=== PATIENT | female | born 1985 | race Two or more races ===

== ENCOUNTER 2017-03-02 19:49 | Emergency (ER) | payer OTHER ==
[2017-03-02 19:56] VITALS: BP 118/73; PULSE 85; TEMP 97.9; BMI 19.5
--- NOTE | 2017-03-02 20:25 | PDOC ---
History of Present Illness - General Chief Complaint: Pain Stated Complaint: KNEE PAIN Time Seen by Provider: 03/02/17 20:11 History Source: Patient - History of Present Illness Occurred: reports: last week Severity: Yes: moderate Lower Extremity Pain Location: left: knee Past History - Past Medical History Allergies/Adverse Reactions: Allergies Allergy/AdvReac Type Severity Reaction Status Date / Time No Known Allergies Allergy Verified 03/02/17 19:56 Other medical history: denies - Psycho/Social/Smoking Cessation Hx Suicidal Ideation: No Smoking History: Never smoked Review of Systems - Review of Systems Constitutional: No: Chills, Fever Musculoskeletal: Yes: Joint Pain, Joint Swelling *Physical Exam - Vital Signs Last Vital Signs Temp Pulse Resp BP Pulse Ox 97.9 F 85 18 118/73 100 03/02/17 19:53 03/02/17 19:53 03/02/17 19:53 03/02/17 19:53 03/02/17 19:53 - Physical Exam General Appearance: Yes: Appropriately Dressed. No: Apparent Distress HEENT: positive: Normal Voice Neck: positive: Supple Respiratory/Chest: negative: Respiratory Distress Extremity: positive: Tender, Swelling, Other (FROMI, able to bear weight). negative: Erythema Integumentary: positive: Dry, Warm Neurologic: positive: Fully Oriented, Alert, Normal Mood/Affect Medical Decision Making - Medical Decision Making 03/02/17 20:22 31-year-old female, currently 8 weeks , endorses history of chronic left knee pain and states 5 years ago while she was residing in the , that she had fluid drained from left knee, now p/w worsening pain to left knee 1 week with some swelling. No recent trauma. No fever or chills. No h/o septic joint. No issues with so far. Patient well-appearing and stable with mild swelling to left knee compared to the right with diffuse tenderness to palpation. Given current , will not x-ray at this time. DC with Tylenol and Mendoza wrap. Ortho follow-up given 03/02/17 20:24 *DC/Admit/Observation/Transfer Diagnosis at time of Disposition: Knee pain, left Qualifiers: Chronicity: acute Qualified Code(s): M25.562 - Pain in left knee - Discharge Dispostion Disposition: HOME Condition at time of disposition: Good - Referrals Referrals: Ba Mix MD [Staff Physician] - - Patient Instructions Printed Discharge Instructions: DI for Knee Pain Additional Instructions: Take tylenol as needed and keep MENDOZA on for comfort Follow up with Dr mix of orthopedics next week
== END 2017-03-02 20:40 | disposition home or self-care (01) ==
LOC: JERFT 19:49
DX: O99.89 Other specified diseases and conditions complicating pregnancy, childbirth and the puerperium (principal); M25.562 Pain in left knee; Z3A.08 8 weeks gestation of pregnancy
CPT/HCPCS: 99281-25

== ENCOUNTER 2017-05-13 00:46 | Emergency (ER) | payer SELFPAY ==
[2017-05-13 01:26] VITALS: BP 106/62; PULSE 77; TEMP 98.2; BMI 20.5
[2017-05-13] MEDS ORDERED: FAMOTIDINE 20 MG/50 ML IVPB 50 ML IVPB ONE ×2 (01:59→02:11)
[2017-05-13] MEDS ORDERED: SODIUM CHLORIDE 1,000 ML IV STA (01:59)
[2017-05-13] MEDS ORDERED: MAG HYDROX/AL HYDROX/SIMETH 30 ML UNIT-DOSE CUP PO ONE (01:59)
[2017-05-13] MEDS ORDERED: ONDANSETRON 4 MG/2 ML VIAL IVPUSH ONE (02:00)
--- NOTE | 2017-05-13 02:20 | PDOC ---
History of Present Illness - General Chief Complaint: Pain Stated Complaint: ABDOMINAL PAIN (19 WEEKS PREG) Time Seen by Provider: 05/13/17 01:42 History Source: Patient Exam Limitations: No Limitations - History of Present Illness Initial Comments: 05/13/17 03:42 31 woman, 19 weeks , here today with epigastric burning abdominal pain and contractions. The abdominal pain and contractions started several hours before presentation to the ED. Contractions lasted for 2 hours, 15 minutes apart. Denies vaginal bleeding. The pain does not radiate. There is associated nausea. Patient denies fevers, chills, and vomiting. Patient has an OB ultrasound scheduled for Monday. Patient is having no contractions at this time. Past History - Past Medical History Allergies/Adverse Reactions: Allergies Allergy/AdvReac Type Severity Reaction Status Date / Time No Known Allergies Allergy Verified 05/13/17 01:24 Home Medications: Ambulatory Orders NK [No Known Home Medication] 05/13/17 - Suicide/Smoking/Psychosocial Hx Smoking History: Never smoked Have you smoked in the past 12 months: No Information on smoking cessation initiated: No Hx Alcohol Use: No Drug/Substance Use Hx: No Review of Systems - Review of Systems Comments:: 05/13/17 03:44 GENERAL/CONSTITUTIONAL: No fever or chills. No weakness. HEAD, EYES, EARS, NOSE AND THROAT: Positive for blurred vision, unchanged. No sore throat. CARDIOVASCULAR: No chest pain or shortness of breath RESPIRATORY: No cough, wheezing, or hemoptysis. GASTROINTESTINAL: No nausea, vomiting, diarrhea or constipation. GENITOURINARY: No dysuria, frequency, or change in urination. MUSCULOSKELETAL: No joint or muscle swelling or pain. No neck or back pain. SKIN: No rash NEUROLOGIC: No headache, vertigo, loss of consciousness, or change in strength/ sensation. ENDOCRINE: No increased thirst. No abnormal weight change HEMATOLOGIC/LYMPHATIC: No anemia, easy bleeding, or history of blood clots. ALLERGIC/IMMUNOLOGIC: No hives or skin allergy. *Physical Exam - Vital Signs Last Vital Signs Temp Pulse Resp BP Pulse Ox 98.2 F 77 20 106/62 97 05/13/17 01:24 05/13/17 01:24 05/13/17 01:24 05/13/17 01:24 05/13/17 01:24 - Physical Exam Comments: 05/13/17 04:05 GENERAL: Awake, alert, and fully oriented, in no acute distress HEAD: No signs of trauma, normocephalic, atraumatic EYES: PERRLA, EOMI, sclera anicteric, conjunctiva clear ENT: Auricles normal inspection, hearing grossly normal, nares patent, oropharynx clear without exudates. Moist mucosa NECK: Normal ROM, supple, no lymphadenopathy, JVD, or masses LUNGS: No distress, speaks full sentences, clear to auscultation bilaterally HEART: Regular rate and rhythm, normal S1 and S2, no murmurs, rubs or gallops, peripheral pulses normal and equal bilaterally. ABDOMEN: Soft, mild epigastric tenderness, normoactive bowel sounds. No guarding, no rebound. No masses EXTREMITIES: Normal inspection, Normal range of motion, no edema. No clubbing or cyanosis. NEUROLOGICAL: Cranial nerves II through XII grossly intact. Normal speech, no focal sensorimotor deficits SKIN: Warm, Dry, normal turgor, no rashes or lesions noted. ED Treatment Course - LABORATORY CBC & Chemistry Diagram: 05/13/17 02:17 05/13/17 02:17 Medical Decision Making - Medical Decision Making 05/13/17 03:36 31 woman, 19 weeks , here today with epigastric burning abdominal pain. Vital signs stable and normal. Physical exam benign. Did experience two hours of contractions before arriving into the ED. Differential diagnosis includes, but is not limited to: gastritis, labor. Will treat with maalox, pepcid, fluids, and zofran. Will evaluate with labs US shows single live IUP HR 140, 18wk 3days in gestation. Pain improved with GI cocktail. Patient is alert, improved and ambulatory at discharge. Return precautions given. *DC/Admit/Observation/Transfer Diagnosis at time of Disposition: Gastritis - Discharge Dispostion Condition at time of disposition: Good Admit: No - Patient Instructions Printed Discharge Instructions: DI for Gastritis
[2017-05-13 02:34] LABS: BASOPHIL 0.7 % (0-2.0); EOSINOPHIL 1.4 % (0-4.5); MCH 27.3 pg (25.7-33.7); MCHC 32.9 g/dl (32.0-36.0); MEAN CELL VOLUME 83.1 fl (80-96); MEAN PLT VOLUME 9.3 fl (7.5-11.1); NEUTROPHILS 73.6 % (42.8-82.8); PLATELET COUNT 183 K/MM3 (134-434); RDW 13.7 % (11.6-15.6); WHITE BLOOD COUNT 11.1 K/mm3 (4.0-10.0)
[2017-05-13 02:55] LABS: ALBUMIN 2.9 g/dl (3.4-5.0); ANION GAP 8 (8-16); BILIRUBIN,TOTAL 0.3 mg/dL (0.2-1.0); CALCIUM 8.5 mg/dL (8.5-10.1); CO2 24 mmol/L (21-32); CREATININE 0.3 mg/dL (0.55-1.02); GLUCOSE,RANDOM 84 mg/dL (74-106); SGOT/AST 14 U/L (15-37); SGPT/ALT 16 U/L (12-78); TOT PROT 6.1 g/dl (6.4-8.2)
[2017-05-13 02:56] LABS: ALK PHOS 45 U/L (45-117)
--- NOTE | 2017-05-13 03:54 | PDOC ---
Attending Attestation - Resident Resident Name: Abhinav Olvera - ED Attending Attestation I have performed the following: I have examined & evaluated the patient, The case was reviewed & discussed with the resident, I agree w/resident's findings & plan, Exceptions are as noted - HPI HPI: 05/13/17 03:51 31 yo F at 19 weeks here with c/o feeling contractions and abd pain in epigastric. burning sensation. no n/v. was at work. 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 no vaginal bleeding. no loss of fluid. - Physicial Exam PE: 05/13/17 03:52 awake alert lungs clear heart rrr nomrg. abd soft gravid. non tender. skin warm and dry. ext wwp. - Medical Decision Making 05/13/17 03:53 with c/o epigastric burning pain, and contraction like feeling. likely jhony fleming. will hydrate pt. check labs. treat for gerd. us for well being. 05/13/17 03:54 pain improved with pepcidd. us live iup. dc home labs unremarkable.
[2017-05-13 04:13] LABS: URINE APPEARANCE SLCLOUDY; URINE BILIRUBIN NEGATIVE (NEGATIVE); URINE BLOOD NEGATIVE (NEGATIVE); URINE COLOR LTYELLOW; URINE GLUCOSE (UA) NEGATIVE (NEGATIVE); URINE KETONE NEGATIVE (NEGATIVE); URINE NITRITE NEGATIVE (NEGATIVE); URINE PROTEIN NEGATIVE (NEGATIVE); URINE UROBILINOGEN NEGATIVE mg/dL (0.2-1.0)
[2017-05-13 11:30] LABS: URINE LEUK ESTERASE 1+ (NEGATIVE)
== END 2017-05-13 04:18 | disposition home or self-care (01) ==
LOC: JER 00:46
PROC: 3E033GC Introduction of Other Therapeutic Substance into Peripheral Vein, Percutaneous Approach (ICD-10-PCS; principal; 2017-05-13)
PROC: 3E0337Z Introduction of Electrolytic and Water Balance Substance into Peripheral Vein, Percutaneous Approach (ICD-10-PCS; 2017-05-13)
DX: O26.92 Pregnancy related conditions, unspecified, second trimester (principal); Z3A.19 19 weeks gestation of pregnancy; K29.70 Gastritis, unspecified, without bleeding
CPT/HCPCS: 36415; 76801-TC; 80053; 81003; 81015; 83690; 85025; 99281-25

== ENCOUNTER 2019-07-27 01:59 | Day surgery (SDC) | payer SELFPAY ==
--- NOTE | 2019-07-27 03:09 | PDOC ---
Attending Attestation - Resident Resident Name: margarita - ED Attending Attestation I have performed the following: I have examined & evaluated the patient, The case was reviewed & discussed with the resident, I agree w/resident's findings & plan - HPI HPI: 07/27/19 03:50 89F A1 LMP 11/ 8 weeks gestation c/o vaginal bleeding and passing parts at 1:30 am tonight. Complains of continued bleeding. endorses mild shortness of breath. Denies lightheadedness dizziness numbness tingling weakness chest pain palpitations nausea vomiting or any abdominal pain. Hx toxoplasmosis - Physicial Exam PE: 07/29/19 05:33 Pt comes with vag bleed in and miscarrriage; os is open in the ER 07/29/19 05:34 afebrile Abd soft NT ND No flank pain Pt has [id number] lungs clear - Medical Decision Making 07/29/19 05:33 33F A1 LMP 11 approx 8 wks gestation presenting with spontaneous . Os open. No active bleeding. - CBC, CMP, Cardiac, Coags, T&S - UA - TVUS labs reviewed Hgb 6.7 Contacted pt's ob: no privleges at this hospital; recs D&C contacted Dr. Cantrell, biztalk consultant [employer]PER[employer], - TVUS, blood Pt consented for blood 2U PRBC Call Dr. Cantrell after TVUS results; dispo pending TVUS . Pt signed out to the day ER team
--- NOTE | 2019-07-27 03:59 | PDOC ---
History of Present Illness - General Chief Complaint: Vaginal Bleeding Stated Complaint: VAGINAL BLEEDING/ABD PAIN Time Seen by Provider: 07/27/19 03:08 - History of Present Illness Initial Comments: 07/28/19 22:37 33F A1 LMP 11 8 weeks gestation c/o vaginal bleeding and passing parts at 1:30 am tonight. Complains of continued bleeding. endorses mild shortness of breath. Denies lightheadedness dizziness numbness tingling weakness chest pain palpitations nausea vomiting or any abdominal pain. 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 Wallace ([facility]) No PCP Past History - Past Medical History Allergies/Adverse Reactions: Allergies Allergy/AdvReac Type Severity Reaction Status Date / Time No Known Allergies Allergy Verified 07/27/19 03:38 Home Medications: Ambulatory Orders Ferrous Sulfate [Feosol] 325 mg PO DAILY #30 tablet 07/27/19 COPD: No - Immunization History Immunization Up to Date: Yes - Psycho Social/Smoking Cessation Hx Smoking History: Never smoked Have you smoked in the past 12 months: No Hx Alcohol Use: No Drug/Substance Use Hx: No Review of Systems - Review of Systems Comments:: 07/28/19 22:37 ROS: CONSTITUTIONAL: Denies F / C HEENT: Denies headache, lightheadedness, dizziness, changes in vision / hearing RESP: Endorses mild SOB. Denies cough CARD: Denies chest pain, palpitations GI: Denies N / V / D, abdominal pain : Denies dysuria SKIN: Denies rashes NEURO: Denies numbness, tingling, weakness MSK: Denies back pain *Physical Exam - Vital Signs Last Vital Signs Temp Pulse Resp BP Pulse Ox 98.4 F 98 H 16 109/67 100 07/27/19 03:38 07/27/19 03:38 07/27/19 03:38 07/27/19 03:38 07/27/19 03:38 - Physical Exam 07/28/19 22:37 PE: GEN: NAD AAOx3 HEENT: NC/AT. No facial asymmetry. Moist mucous membranes. Normal voice. Supple neck w/ FROM. CV: S1/S2, RRR, no m/r/g LUNG: CTAB, no wheezes, crackles, rales, rhonchi. GI: soft, ndnt, +BS, no guarding, no rebound. No masses. PELVIC: Exam chaperoned by medical student, Katia. No discharge or atrophy on inspection. There is dried blood. Speculum exam revealed POC in vault, removed w/ sponge stick. No active bleeding, there was blood in the vault. Cervical os visualized and open with no active bleeding. No CMT on bimanual. Cervix 2-3cm open on bimanual. EXTREMITIES: No obvious deformities of all extremities. SKIN: warm, dry, normal turgor PSYCH: normal mood and affect NEURO: Moving all extremities well. ED Treatment Course - LABORATORY CBC & Chemistry Diagram: 07/27/19 19:20 07/27/19 14:15 - RADIOLOGY Radiology Studies Ordered: Category Date Time Status TRANSVAGINAL US PREG [US] Stat Ultrasound 07/27/19 03:33 Ordered Medical Decision Making - Medical Decision Making 07/27/19 03:57 MDM: 33F A1 LMP 06/07 approx 8 wks gestation presenting with spontaneous . Os open. No active bleeding. - CBC, CMP, Cardiac, Coags, T&S - UA - TVUS 07/27/19 05:24 labs reviewed Hgb 6.7 Contacted pt's ob: no privledges at this hospital; recs D&C contacted Dr. Cantrell - TVUS, blood consented for blood 2U PRBC Call Dr. Cantrell after TVUS results; dispo pending TVUS but will be admitted signed out to AM team Discharge - Discharge Information Problems reviewed: Yes Clinical Impression/Diagnosis: Incomplete Anemia Qualifiers: Anemia type: unspecified type Qualified Code(s): D64.9 - Anemia, unspecified Condition: Stable Disposition: HOME - Additional Discharge Information - Follow up/Referral - Patient Discharge Instructions - Post Discharge Activity
[2019-07-27 04:16] LABS: EOS % 0.9 % (0-4.5)
[2019-07-27 04:23] LABS: BASO % 0.4 % (0-2.0); HEMATOCRIT 20.4 % (32.4-45.2); LYMPH % 15.5 % (8-40); MCH 27.4 pg (25.7-33.7); MCHC 32.6 g/dl (32.0-36.0); MEAN PLT VOLUME 9.1 fl (7.5-11.1); MONO % 4.4 % (3.8-10.2); NEUT % 78.8 % (42.8-82.8); PLATELET COUNT 210 K/MM3 (134-434); RBC 2.43 M/mm3 (3.60-5.2); RDW 13.1 % (11.6-15.6); WHITE BLOOD COUNT 14.7 K/mm3 (4.0-10.0)
[2019-07-27 04:31] LABS: INR 0.97 (0.83-1.09); PROTHROMBIN TIME (PATIENT) 11.5 SEC (9.7-13.0)
[2019-07-27 04:33] LABS: ACTIVATED PTT 27.5 SECONDS (25.2-36.5)
[2019-07-27 04:39] LABS: HEMOGLOBIN 6.7 GM/dL (10.7-15.3)
--- NOTE | 2019-07-27 07:27 | PDOC ---
*Physical Exam - Vital Signs Last Vital Signs Temp Pulse Resp BP Pulse Ox 98.6 F 90 16 99/58 L 99 07/27/19 07:24 07/27/19 07:24 07/27/19 07:24 07/27/19 07:24 07/27/19 07:24 ED Treatment Course - LABORATORY CBC & Chemistry Diagram: 07/27/19 19:20 07/27/19 14:15 - ADDITIONAL ORDERS Additional order review: Laboratory Results 07/27/19 07/27/19 07/27/19 04:52 04:00 04:00 PT with INR 11.50 INR 0.97 PTT (Actin FS) 27.5 Creatine Kinase 88 Troponin I < 0.02 Beta HCG, Quant Blood Type A POSITIVE Antibody Screen Negative Crossmatch See Detail 07/27/19 07/27/19 04:00 04:00 PT with INR INR PTT (Actin FS) Creatine Kinase Troponin I Beta HCG, Quant 6357.7 Blood Type A POSITIVE Antibody Screen Negative Crossmatch 07/27/19 04:00 RBC 2.43 L MCV 84.0 MCHC 32.6 RDW 13.1 MPV 9.1 Neutrophils % 78.8 Lymphocytes % 15.5 Monocytes % 4.4 Eosinophils % 0.9 Basophils % 0.4 Medical Decision Making - Medical Decision Making 07/27/19 07:26 Sign out from night team --- 33F w PMHx toxoplasmosis 8 weeks gestation c/o vaginal bleeding and passing parts at 1:30 am tonight d/t incomplete LETTERER: Dr. Wallace ([facility]), No PCP pelvic exam showed open cervical os 2-3cm, no active bleeding, POC in vaginal vault removed TVUS showed thickened and irregular endometrium without evidence of viable intrauterine gestation. No adnexal mass/free fluid WBC 14, pending UA Hgb 6.7 - consented for blood, given 2U PRBC Contacted pt's ob: no privileges at this hospital; recs D&C, call instrumentation technologist obgyn for recs Contacted obgyn Dr. Cantrell, he will see pt in ED and do pelvic exam, agrees with admitting pt Admitted to obgyn Dr Cantrell for anemia requiring transfusion, incomplete Discharge - Discharge Information Problems reviewed: Yes Clinical Impression/Diagnosis: Incomplete Anemia Qualifiers: Anemia type: unspecified type Qualified Code(s): D64.9 - Anemia, unspecified Condition: Stable - Additional Discharge Information - Follow up/Referral - Patient Discharge Instructions - Post Discharge Activity
[2019-07-27] MEDS ORDERED: SODIUM CHLORIDE 1,000 ML IV SCH (13:00)
--- NOTE | 2019-07-27 13:09 | HP ---
Admitting History and Physical - Primary Care Physician PCP: Elmo Cantrell - Admission Chief Complaint: SAB History of Present Illness: Patient unaware that she was . She reports long standing anemia and active bright red vaginal bleeding started yesterday. She reports passing tissue and photo reviewed. 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: No: Alzheimer's, CVA, Dementia, Migraine, Multiple Sclerosis, Peripheral Neuropathy, Parkinson's, Seizure, Syncope, TIA, Vertigo, Other Cardiovascular: No: AFIB, Aneurysm, Aortic Insufficiency, Aortic Stenosis, CAD, CHF, Deep Vein Thrombosis, HTN, Hyperlipdemia, ND, Mitral Insufficiency, Mitral Stenosis, Murmur, Pulmonary Hypertension, Other Pulmonary: No: Asthma, Bronchitis, Cancer, COPD, O2 Dependent, Pneumonia, Previously Intubated, Pulmonary Embolus, Pulmonary Fibrosis, Sleep Apnea, Other Gastrointestinal: No: Ascites, Cancer, Constipation, Crohn's Disease, Diverticulitis, Diverticulosis, Esophageal Varices, Gastritis, GERD, GI Bleed, Hemorrhoids, Hiatal Hernia, Inflamatory Bowel Disease, Irritable Bowel Disease, Pancreatitis, Peptic Ulcer Disease, Ulcerative Colitis, Other Hepatobiliary: No: Cirrhosis, Cholelithiasis, Cholecystitis, Choledocholithiasis , Hepatitis A, Hepatitis B, Hepatitis C, Other Renal/: No: Renal Failure, Renal Inusuff, BPH, Cancer, Hematuria, Hemodialysis , Neurogenic Bladder, Renal Calculi, UTI, Other Reproductive: No: Ectopic , Endometriosis, Fibroids, PID, Polycystic Ovary Syndrome, Postmenopausal, Other ...LMP: 06/07/19 ...: Yes ...: 4 ...Para: 2 Heme/Onc: Yes: Anemia Infectious Disease: No: AIDS, C-Diff, Herpes Zoster, HIV, MRSA, STD's, Tuberculosis, VREF, Other Psych: No: Addictions, Anxiety, Bipolar, Depression, Panic, Psychosis, Schizophrenia, Other Musculoskeletal: No: Bursitis, Chronic low back pain, Hemiparesis, Hemiplegia, Osteoarthritis, Paraplegia, Other Rheumatology: No: Fibromyalgia, Gout, Lupus, Rheumatoid Arthritis, Sarcoidosis, Vasculitis, Other ENT: No: Allergic Rhinitis, Sinusitis, Other Endocrine: No: Mega's Disease, Gold Bar's Disease, Diabetes Insipidus, Diabetes Mellitus, Hyperparathyroidism, Hyperthyroidism, Hypothyroidism, Osteopenia, SIADH, Other Dermatology: No: Basal Cell, Cellulitis, Eczema, Melanoma, Psoriasis, Squamous Cell, Other - Past Surgical History Past Surgical History: Yes: Breast Biopsy (breast augmentation) - Smoking History Smoking history: Never smoked Have you smoked in the past 12 months: No - Alcohol/Substance Use Hx Alcohol Use: No History of Substance Use: reports: None Home Medications - Allergies Allergies/Adverse Reactions: Allergies Allergy/AdvReac Type Severity Reaction Status Date / Time No Known Allergies Allergy Verified 07/27/19 03:38 - Home Medications Home Medications: Ambulatory Orders NK [No Known Home Medication] 05/13/17 Family Medical History Family History: Unremarkable Review of Systems Findings/Remarks: feeling dizzy and tired. Patient reports vaginal bleeding has improved - Review of Systems Constitutional: reports: No Symptoms, Lethargy, Weakness HENT: reports: No Symptoms Neck: reports: No Symptoms Cardiovascular: reports: No Symptoms Respiratory: reports: No Symptoms Gastrointestinal: reports: No Symptoms Genitourinary: reports: No Symptoms Breasts: reports: No Symptoms Reported Musculoskeletal: reports: No Symptoms Integumentary: reports: No Symptoms Neurological: reports: No Symptoms Endocrine: reports: No Symptoms Hematology/Lymphatic: reports: No Symptoms Psychiatric: reports: No Symptoms Pain Intensity: 0 Physical Examination Vital Signs: Vital Signs Temperature 98.1 F 07/27/19 11:05 Pulse Rate 82 07/27/19 11:05 Respiratory Rate 18 07/27/19 11:05 Blood Pressure 101/58 L 07/27/19 11:05 O2 Sat by Pulse Oximetry (%) 98 07/27/19 11:05 Constitutional: Yes: No Distress Eyes: Yes: WNL HENT: Yes: Atraumatic Neck: Yes: Supple Cardiovascular: Yes: Regular Rate and Rhythm Respiratory: Yes: Regular Gastrointestinal: Yes: Soft ...Rectal Exam: Yes: Deferred Renal/: Yes: Other (SVE: cervix 2 cm dilated, no active bleeding from the os, scant dark blood in vaginal vault SVE: 1.5 cm dilated, no CMT, no clots/tissue in lower segment) Breast(s): Yes: Other (deferred) Extremities: Yes: WNL Edema: Yes Edema: LLE: Trace, RLE: Trace Integumentary: Yes: WNL Neurological: Yes: Alert, Oriented ...Motor Strength: WNL Psychiatric: Yes: Alert, Oriented Labs: CBC, BMP 07/27/19 04:00 07/27/19 11:12 Imaging - Results Ultrasound: Report Reviewed Assessment/Plan 33 y/o S/P complete SAB resulting in severe anemia. No active bleeding on exam and patient is asymptomatic. -Transfuse PRBC -D/C later today -F/U as outpatient
[2019-07-27] MEDS ORDERED: ACETAMINOPHEN 325 MG TABLET (FP) ONE (14:14)
[2019-07-27] MEDS: ACETAMINOPHEN 325 MG TABLET (FP) PO PRN ×2 (14:25→18:49)
[2019-07-27 14:48] LABS: EPI CELLS 15.1 /HPF (0-5/HPF); HYALINE CASTS 33 /lpf (0-8); URINE APPEARANCE CLOUDY; URINE BACTERIA 28.5 /hpf (NEGATIVE); URINE BILIRUBIN NEGATIVE (NEGATIVE); URINE COLOR ORANGE; URINE GLUCOSE (UA) NEGATIVE (NEGATIVE); URINE KETONE TRACE (NEGATIVE); URINE LEUK ESTERASE 1+ (NEGATIVE); URINE NITRITE NEGATIVE (NEGATIVE); URINE PROTEIN TRACE (NEGATIVE); URINE RBC 192 /hpf (0-4); URINE WBC 14 /hpf (0-5)
[2019-07-27 15:28] LABS: ALBUMIN 2.7 g/dl (3.4-5.0); BILIRUBIN,TOTAL 0.8 mg/dL (0.2-1); BLOOD UREA NITROGEN 6.2 mg/dL (7-18); CALCIUM 8.2 mg/dL (8.5-10.1); CREATININE 0.4 mg/dL (0.55-1.3); TOT PROT 5.3 g/dl (6.4-8.2)
[2019-07-27 17:08] VITALS: TEMP 98.9
[2019-07-27 19:07] VITALS: BMI 20.5
--- NOTE | 2019-07-27 19:18 | DS ---
Physical Examination Vital Signs: Vital Signs Temperature 98.9 F 07/27/19 19:02 Pulse Rate 86 07/27/19 19:02 Respiratory Rate 18 07/27/19 19:02 Blood Pressure 94/58 L 07/27/19 19:02 O2 Sat by Pulse Oximetry (%) 100 07/27/19 13:45 Findings/Remarks: Patient is feeling better, no light headedness and bleeding subsided. Constitutional: Yes: Well Nourished Eyes: Yes: WNL HENT: Yes: Atraumatic Neck: Yes: Supple Cardiovascular: Yes: Regular Rate and Rhythm Respiratory: Yes: Regular Gastrointestinal: Yes: Normal Bowel Sounds ...Rectal Exam: Yes: Deferred Renal/: Yes: Other (deferred) Breast(s): Yes: Other (deferred) Extremities: Yes: WNL Edema: Yes Edema: LLE: Trace, RLE: Trace Integumentary: Yes: WNL Wound/Incision: Yes: Well Approximated Neurological: Yes: Alert, Oriented, Weakness Psychiatric: Yes: Alert, Oriented Labs: CBC, BMP 07/27/19 04:00 07/27/19 14:15 Discharge Summary Problems reviewed: Yes Reason For Visit: INCOMPLETE /ANEMIA Current Active Problems Anemia (Acute) Incomplete (Acute) Procedures: Principal: Blood transfusion Hospital Course: Patient was admitted for blood transfusion following severe anemia after SAB. Patient is in stable condition and cleared for discharge. Precautions and recommendation provided. Health Concerns: Anemia Plan of Treatment: PO iron -Follow with EQUIPMENT DRIVER provider in 1-2 weeks Condition: Stable - Instructions Diet, Activity, Other Instructions: Return to regular diet and activity as tolerated. Follow up with EQUIPMENT DRIVER in 1-2 weeks. Follow instructions as explained by provider Referrals: Elmo Cantrell MD [Staff Physician] - Disposition: HOME - Home Medications Comprehensive Discharge Medication List: Ambulatory Orders Ferrous Sulfate [Feosol] 325 mg PO DAILY #30 tablet 07/27/19
[2019-07-27 19:35] LABS: BASO % 0.2 % (0-2.0); EOS % 0.6 % (0-4.5); HEMATOCRIT 25.6 % (32.4-45.2); HEMOGLOBIN 8.4 GM/dL (10.7-15.3); LYMPH % 8.8 % (8-40); MCH 27.4 pg (25.7-33.7); MCHC 32.6 g/dl (32.0-36.0); MEAN PLT VOLUME 8.5 fl (7.5-11.1); MONO % 5.1 % (3.8-10.2); NEUT % 85.3 % (42.8-82.8); PLATELET COUNT 173 K/MM3 (134-434); RBC 3.05 M/mm3 (3.60-5.2); RDW 14.8 % (11.6-15.6); WHITE BLOOD COUNT 13.7 K/mm3 (4.0-10.0)
[2019-07-27 20:19] VITALS: BP 102/55; PULSE 90
--- NOTE | 2019-08-02 12:56 | PATH ---
Surgical Pathology Report Patient Name: HARPER BLANKENSHIP Med. Rec. #: [id number] /Age/Gender: 1985 (Age: 33) / F Account: [id number] Location: AMBULATORY SURG Taken: 07/27/2019 Received: 07/29/2019 Reported: 08/02/2019 Physicians: Franklin Gomes M.D. Specimen(s) Received PRODUCTS OF CONCEPTION Clinical History , approximately 8 weeks gestation, vaginal bleed and passed products Final Diagnosis PRODUCTS OF CONCEPTION, PASSAGE: AGGREGATE OF BLOOD (FIBRIN) CLOT. NO DEFINITIVE VILLOUS TISSUE IDENTIFIED. Electronically Signed Marcela Howell M.D. Gross Description Received fresh labeled with the patient's name and indicated on the requisition to be products of conception, is a 12.5 x 10.0 x 0.8 cm aggregate of red brown blood clot. No definitive villous tissue or somatic tissue is identified. Entire specimen is submitted in 16 cassettes. /07/29/2019 [place]udi07/29/2019
== END 2019-07-27 21:52 | disposition home or self-care (01) ==
LOC: JER 01:59 → JERBED 08:47 → UNDOADMIN 08:47 → JASUSAT 08:47 → J5S 14:49 → JASUSAT 21:52
PROVIDERS: ATTEND Student in an Organized Health Care Education/Training Program
PROC: 30233N1 Transfusion of Nonautologous Red Blood Cells into Peripheral Vein, Percutaneous Approach (ICD-10-PCS; principal; 2019-07-27)
DX: O03.4 Incomplete spontaneous abortion without complication (principal); D64.9 Anemia, unspecified
CPT/HCPCS: 36415; 36430; 36511; 76817-TC; 80053; 81003; 82550; 84484; 84702; 85025; 85610; 85730; 86850; 86900; 86901; 86922; 88305-TC; 99285-25; J7030; P9038; P9058

== ENCOUNTER 2022-05-13 04:05 | Day surgery (SDC) | payer OTHER ==
[2022-05-11 16:04] VITALS: BMI 23.6
[2022-05-13] MEDS ORDERED: BUPIVACAINE HCL/PF 0.5% (5MG/ML) 10 ML VIAL ONE (07:27)
[2022-05-13] MEDS ORDERED: LIDOCAINE 1%/EPI 1:100000 (20 ML MULTI DOSE VIAL) ONE (07:27)
[2022-05-13] MEDS ORDERED: ONDANSETRON 4 MG/2 ML VIAL ONE (07:57)
[2022-05-13] MEDS ORDERED: ceFAZolin SODIUM 1 GM VIAL ONE (07:57)
[2022-05-13] MEDS ORDERED: PROPOFOL 40 ML ONE (07:57)
[2022-05-13] MEDS ORDERED: DEXAMETHASONE SOD PHOSPHATE 4 MG/1 ML VIAL ONE (07:57)
[2022-05-13] MEDS ORDERED: LIDOCAINE HCL 2% 100 MG/5 ML DISP.SYRIN ONE (07:57)
[2022-05-13] MEDS ORDERED: KETOROLAC TROMETHAMINE 30 MG/1 ML VIAL ONE (07:57)
[2022-05-13] MEDS ORDERED: MIDAZOLAM HCL 2 MG/2 ML SINGLE DOSE VIAL ONE (08:17)
[2022-05-13] MEDS ORDERED: ceFAZolin SODIUM 1 GM VIAL IVPB ONE (08:17)
[2022-05-13] MEDS ORDERED: LIDOCAINE 1%/EPI 1:100000 (20 ML MULTI DOSE VIAL) IJ ONE (08:26)
[2022-05-13] MEDS ORDERED: BUPIVACAINE HCL/PF 0.5% (5MG/ML) 10 ML VIAL IJ ONE (08:26)
[2022-05-13] MEDS ORDERED: oxyCODONE HCL 5 MG TABLET PO PRN (09:12)
[2022-05-13] MEDS ORDERED: ONDANSETRON 4 MG/2 ML VIAL IVPUSH PRN (09:12)
[2022-05-13] MEDS ORDERED: PROMETHAZINE HCL 25 MG/1 ML VIAL IVPUSH PRN (09:12)
[2022-05-13 10:59] VITALS: PULSE 80; RESP 20
[2022-05-13 14:14] VITALS: BP 131/80; TEMP 98.1
== END 2022-05-13 13:10 | disposition home or self-care (01) ==
LOC: JASU-SURG 04:05 → MERGE 08:45 → JASU-SURG 13:10
PROVIDERS: ATTEND Orthopaedic Surgery
PROC: 0SBD4ZZ Excision of Left Knee Joint, Percutaneous Endoscopic Approach (ICD-10-PCS; principal; 2022-05-13 08:00)
DX: M65.9 Synovitis and tenosynovitis, unspecified (principal)
CPT/HCPCS: 88305-TC; 88312-TC; 94760